=== PATIENT | female | born 1985 | race Caucasian/White ===

== ENCOUNTER 2016-09-28 00:30 | Emergency (ER) | payer MEDICAID, OTHER ==
[~2016-09-28] VITALS: Ht 170.2 cm; Wt 81.6 kg
[2016-09-28 00:30] VITALS: BP 104/63; PULSE 79; RESP 16; TEMP 98.8; O2SAT 96
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
--- NOTE | 2016-09-28 00:40 | NUR ---
Dr. Temple at bedside to examine pt and discuss plan of care.
[2016-09-28] MEDS ORDERED: ACETAMINOPHEN 500 MG TABLET PO ONE (01:00)
--- NOTE | 2016-09-28 01:05 | NUR ---
Suicide risk/ lethality admission assessment performed by chapis CAIN, pt denies suicidal ideation or thought of harming anybody at this time. Drawers locked, belonging labelled and placed in bag, wires removed from pt's room, pt is on video monitor.
[2016-09-28 01:10] LABS: BASOPHILS % (AUTO) 0.3 % (0.0-2.0); EOSINOPHILS # (AUTO) 0.5 K/uL (0.0-0.4); HEMOGLOBIN 11.6 g/dL (12.0-16.0); LYMPHOCYTES # (AUTO) 2.4 K/uL (1.0-5.5); LYMPHOCYTES % (AUTO) 29.8 % (20.5-51.5); MEAN CORPUSCULAR HEMOGLOBIN 29 pg (27-31); MEAN CORPUSCULAR HGB CONC 33 % (32-36); MEAN CORPUSCULAR VOLUME 88 fL (79.0-98.0); MONOCYTES # (AUTO) 0.7 K/uL (0.0-1.0); NEUTROPHILS # (AUTO) 4.6 K/uL (1.8-7.7); NEUTROPHILS % (AUTO) 54.9 % (40.0-70.0); PLATELET COUNT (AUTO) 193 K/uL (130-430); RED CELL DISTRIBUTION WIDTH 14.4 % (9.0-15.0); WHITE BLOOD COUNT (AUTO) 8.2 K/uL (4.8-10.8)
[2016-09-28 01:10] LABS: BILIRUBIN,URINE NEGATIVE (NEGATIVE); BLOOD, URINE NEGATIVE (NEGATIVE); CLARITY/URINE SL CLOUDY (CLEAR); COLOR,URINE YELLOW (YELLOW); GLUCOSE,URINE NEGATIVE (NEGATIVE); KETONES,URINE NEGATIVE (NEGATIVE); LEUKOCYTE ESTERASE ,URINE 1+ (NEGATIVE); NITRITE, URINE NEGATIVE (NEGATIVE); PH,URINE 5.5 (5.0-8.0); PROTEIN URINE NEGATIVE (NEGATIVE); UROBILINOGEN,URINE 0.2 (0.2-1.0)
--- NOTE | 2016-09-28 01:12 | NUR ---
Per TWYLA, pt's family states pt is HIV+.
[2016-09-28 01:18] LABS: ANION GAP 11 (5-15); CHLORIDE 105 mmol/L (98-107); GLUCOSE 114 mg/dL (70-99); SODIUM SERUM 138 mmol/L (136-145); UREA NITROGEN, BLOOD 18 mg/dL (8-21)
[2016-09-28 01:20] LABS: BACTERIA,URINE MODERATE /HPF (None Seen); MUCUS,URINE None Seen /LPF (None Seen); URINE AMORPHOUS URATE 2+ /HPF (None Seen)
[2016-09-28 01:21] LABS: BARBITURATE, URINE NEGATIVE (NEG <=200)
[2016-09-28 01:22] LABS: BENZODIAZEPINE, URINE NEGATIVE (NEG <=150); CANNABINOID, URINE POSITIVE (NEG <=50); COCAINE, URINE NEGATIVE (NEG <=150); METHAMPHETAMINES SCREEN,URINE NEGATIVE (NEG <=500); OPIATE, URINE NEGATIVE (NEG <=100); PHENCYCLIDINE SCREEN,URINE NEGATIVE (NEG <=25); UR TRICYCLIC ANTIDEPRESSANTS NEGATIVE (NEG <=300); URINE AMPHETAMINE POSITIVE (NEG <=500); URINE METHADONE NEGATIVE (NEG <=200); URINE OXYCODONE SCREEN NEGATIVE (NEG <=100); URINE PROPOXYPHENE SCREEN NEGATIVE (NEG <=300)
[2016-09-28 01:23] LABS: ALANINE AMINOTRANSFERASE 24 U/L (12-78); ALBUMIN 3.6 g/dL (3.4-4.8); ASPARTATE AMINOTRANSFERASE 16 U/L (10-37); SALICYLATE 1 mg/dL (3-30); TOTAL BILIRUBIN 0.2 mg/dL (0.0-1.0); TOTAL PROTEIN, SERUM 7.1 g/dL (6.4-8.3)
[2016-09-28 01:26] LABS: ALCOHOL, BLOOD < 3 mg/dL (<10); GFR AFRICAN AMERICAN 108 mL/min (>90)
[2016-09-28 01:32] LABS: ACETAMINOPHEN < 1 ug/mL (1-30)
--- NOTE | 2016-09-28 02:06 | NUR ---
Pt in bed, stated she's comfortable. No sign of distress noted
--- NOTE | 2016-09-28 03:18 | NUR ---
Spoke to Kayla at [phone] from [facility] and given report. Awaiting callback for arangement of transfer
--- NOTE | 2016-09-28 04:25 | NUR ---
Pt in bed appeared resting comfortably. VSS, no distress. will continue to monitor
--- NOTE | 2016-09-28 05:50 | NUR ---
Care attended and needs assessed, pt appeared sleeping comfortably.
--- NOTE | 2016-09-28 07:13 | NUR ---
Pt sitting up in bed, NAD. Pt denies HI/SI at this time. Calm and cooperative.
[2016-09-28] MEDS ORDERED: IBUPROFEN 800 MG TABLET PO ONE (07:45)
--- NOTE | 2016-09-28 07:46 | NUR ---
Pt provided with breakfast tray.
--- NOTE | 2016-09-28 08:10 | NUR ---
Spoke with Mino at [facility]. Bed available. Calling [facility] to obtain med list.
--- NOTE | 2016-09-28 08:44 | NUR ---
Medical hx and med list obtained from [facility] and faxed to Mino at [facility]. Awaiting bed placement.
--- NOTE | 2016-09-28 10:27 | NUR ---
Pt AAOx4, calm and cooperative, no needs verbalized at this time. Awaiting transport to [facility].
--- NOTE | 2016-09-28 11:25 | NUR ---
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 Pt states that she needs Klonipin for anxiety for [address] facility. Dr. Au notified.
[2016-09-28 11:45] VITALS: BP 103/63; PULSE 96; RESP 20; TEMP 97.9; O2SAT 100
[2016-09-28] MEDS ORDERED: LORazepam 1 MG TABLET PO ONE (11:45)
[2016-09-28] MEDS ORDERED: clonazePAM 0.5 MG TABLET PO ONE (11:45)
--- NOTE | 2016-09-28 11:45 | NUR ---
Patient to be transferred to [facility]. Is being transferred due to higher level of care. Receiving facility has accepting physician and available space. ER physician has signed transfer form. Patient or responsible republican has agreed to transfer and signed form. Patient belongings inventoried and will be sent with patient. Copy of nursing notes, lab reports, EKG, Physicians Orders and X-rays to be sent with patient. Report called to PAYTON Rose at receiving facility. Receiving physician is Dr. Carbajal. Pt leaves via stretcher in c/o BLS ambulance.
== END 2016-09-28 11:45 | disposition short-term general hospital (02) ==
LOC: SED 00:30
DX: T42.4X1A Poisoning by benzodiazepines, accidental (unintentional), initial encounter (principal); R45.851 Suicidal ideations; J45.909 Unspecified asthma, uncomplicated; F17.200 Nicotine dependence, unspecified, uncomplicated; Z88.1 Allergy status to other antibiotic agents; Y92.89 Other specified places as the place of occurrence of the external cause
CPT/HCPCS: 36415; 80053; 80307; 81000; 81025; 84484; 85025; 87086; 99285; G0480; G0481; G0482